=== PATIENT | male | born 1940 | race Two or more races ===

== ENCOUNTER 2019-01-16 10:14 | Emergency (ER) | payer MEDICAID, OTHER ==
[~2019-01-16] VITALS: Ht 157.5 cm; Wt 72.6 kg
[2019-01-16] MEDS ORDERED: KETOROLAC TROMETH 15 mg/ml 1ML VL IM ONE (11:15)
[2019-01-16 11:58] VITALS: BP 122/57
== END 2019-01-16 11:21 | disposition home or self-care (01) ==
LOC: ER 10:23
DX: M54.5 Low back pain (principal); I10 Essential (primary) hypertension; X50.1XXA Overexertion from prolonged static or awkward postures, initial encounter; Y93.89 Activity, other specified; Y92.89 Other specified places as the place of occurrence of the external cause; Y99.8 Other external cause status
CPT/HCPCS: 72100; 96372; 99283; J1885